=== PATIENT | female | born 1950 | race Caucasian/White ===

== ENCOUNTER → 2024-10-23 12:50 | Outpatient (BNVA) | payer OTHER, SELFPAY | PROVIDERS: Referring Provider Internal Medicine; Visit Provider Psychiatry & Neurology Neurology | DX: G40.909 Epilepsy, unspecified, not intractable, without status epilepticus (principal) | CPT/HCPCS: 36415; 80053; 80185; 82607; 82652; 82746; 83735; 83921; 84439; 84443 ==

== ENCOUNTER 2024-10-31 11:59 | Outpatient (CLI) | payer OTHER, SELFPAY ==
[2024-10-31 12:53] LABS: Phenytoin Dilantin 9.6 ug/mL (10-20)
== END 2024-10-31 12:00 | disposition home or self-care (01) ==
PROVIDERS: PCP Family Medicine; Visit Provider Psychiatry & Neurology Neurology
DX: G40.909 Epilepsy, unspecified, not intractable, without status epilepticus (principal)
CPT/HCPCS: 36415; 80177; 80185